=== PATIENT | female | born 1940 | race Caucasian/White ===

== ENCOUNTER → 2016-09-26 | Outpatient (CLI) | payer MEDICARE, OTHER ==
[2016-09-26 12:07] LABS: PROTHROMBIN TIME 27.9 SEC (11.4-15.4)
== END ==
LOC: OD 11:03
PROVIDERS: ATTEND Internal Medicine
DX: Z79.01 Long term (current) use of anticoagulants (principal)
CPT/HCPCS: 36415; 85610

== ENCOUNTER → 2016-11-17 | Outpatient (CLI) | payer MEDICARE, OTHER ==
[2016-11-17 18:47] LABS: PROTHROMBIN TIME 27.3 SEC (11.4-15.4)
== END ==
LOC: OD 17:14
PROVIDERS: ATTEND Internal Medicine
DX: Z79.01 Long term (current) use of anticoagulants (principal)
CPT/HCPCS: 36415; 85610

== ENCOUNTER → 2016-12-15 | Outpatient (CLI) | payer MEDICARE, OTHER ==
--- NOTE | 2016-12-15 15:21 | RADIOLOGY REPORT (SQ) ---
EXAM DESCRIPTION: CT HEAD WITHOUT COMPLETED DATE/TIME: 12/15/2016 2:56 pm REASON FOR STUDY: HEADACHE R51 HEADACHE COMPARISON: 01/18/2016, 02/29/2012 TECHNIQUE: Axial images acquired through the brain without intravenous contrast. Images reviewed wi th bone, brain and subdural windows. Images stored on PACS. All CT scanners at this facility use dose modulation, iterative reconstruction, and/or weight based d osing when appropriate to reduce radiation dose to as low as reasonably achievable (ALARA). [facility]: Dose Right [facility]: CareDose [facility]: Dose Right [facility]: Teradose 4D [facility]: [employer] RADIATION DOSE: 48.95 mGy. LIMITATIONS: None. FINDINGS: VENTRICLES: Normal size and contour. CEREBRUM: Spotty low attenuation in the bilateral frontal deep periventricular white matter and bilat eral basal ganglia likely chronic small vessel ischemic change. No CT evidence of acute large territory ischemic change, acute intracranial hemorrhage, mass effect, or midline shift. CEREBELLUM: No masses. No hemorrhage. No alteration of density. No evidence for acute infarction. EXTRAAXIAL SPACES: No fluid collections. No masses. ORBITS AND GLOBE: No intra- or extraconal masses. Normal contour of globe without masses. CALVARIUM: No fracture. PARANASAL SINUSES: No fluid or mucosal thickening. SOFT TISSUES: No mass or hematoma. OTHER: No other significant finding. IMPRESSION: No acute findings. 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 TECHNICAL DOCUMENTATION: JOB ID: [id number] Quality ID # [id number]: Final reports with documentation of one or more dose reduction techniques (e.g., Au tomated exposure control, adjustment of the mA and/or kV according to patient size, use of iterative reconstruction technique) 2010 [employer]- All Rights Reserved
== END ==
LOC: RAD 14:06
PROVIDERS: ATTEND Internal Medicine
DX: R51 Headache (principal)
CPT/HCPCS: 70450

== ENCOUNTER 2017-02-15 20:40 | Emergency (ER) | payer MEDICARE, OTHER ==
--- NOTE | 2017-02-15 22:43 | RADIOLOGY REPORT (SQ) ---
EXAM DESCRIPTION: CT HEAD WITHOUT COMPLETED DATE/TIME: 02/15/2017 10:32 pm REASON FOR STUDY: fall head injury COMPARISON: December 2015 TECHNIQUE: Axial images acquired through the brain without intravenous contrast. Images reviewed wi th bone, brain and subdural windows. Images stored on PACS. All CT scanners at this facility use dose modulation, iterative reconstruction, and/or weight based d osing when appropriate to reduce radiation dose to as low as reasonably achievable (ALARA). [facility]: Dose Right [facility]: CareDose [facility]: Dose Right [facility]: Teradose 4D [facility]: [employer] RADIATION DOSE: Up-to-date CT equipment and radiation dose reduction techniques were employed. CTDIv ol: 31.9 mGy. DLP: 510 mGy-cm. mGy. LIMITATIONS: None. FINDINGS: VENTRICLES: Normal size and contour. CEREBRUM: No masses. No hemorrhage. No midline shift. Normal ruano/white matter differentiation. N o evidence for acute infarction. CEREBELLUM: No masses. No hemorrhage. No alteration of density. No evidence for acute infarction. EXTRAAXIAL SPACES: No fluid collections. No masses. ORBITS AND GLOBE: No intra- or extraconal masses. Normal contour of globe without masses. CALVARIUM: No fracture. PARANASAL SINUSES: No fluid or mucosal thickening. SOFT TISSUES: No mass or hematoma. OTHER: No other significant finding. IMPRESSION: NORMAL BRAIN CT WITHOUT CONTRAST. TECHNICAL DOCUMENTATION: JOB ID: [id number] Quality ID # [id number]: Final reports with documentation of one or more dose reduction techniques (e.g., Au tomated exposure control, adjustment of the mA and/or kV according to patient size, use of iterative reconstruction technique) 2010 [employer]- All Rights Reserved
--- NOTE | 2017-02-15 22:54 | RADIOLOGY REPORT (SQ) ---
EXAM DESCRIPTION: CT FACIAL AREA WITHOUT COMPLETED DATE/TIME: 02/15/2017 10:32 pm REASON FOR STUDY: fall head injury COMPARISON: None. TECHNIQUE: Noncontrasted images through the facial bones and orbits windowed for bone and soft tissu e. Additional coronal and sagittal reconstructed images reviewed. All images stored on PACS. All CT scanners at this facility use dose modulation, iterative reconstruction, and/or weight based d osing when appropriate to reduce radiation dose to as low as reasonably achievable (ALARA). [facility]: Dose Right [facility]: CareDose [facility]: Dose Right [facility]: Teradose 4D [facility]: [employer] RADIATION DOSE: mGy. LIMITATIONS: None. FINDINGS: FACIAL BONES: No fracture or bone lesion. ORBITS: Intact. No fracture. Symmetric intact globes and retroorbital soft tissues. PARANASAL SINUSES: Clear. No significant mucosal thickening, mass or fluid. No nasal polyps. Maxill mala sinus outlets are patent. SOFT TISSUES: There is some minimal increased density in the subcutaneous fat in the right maxillary region presumably posttraumatic in nature. INFERIOR BRAIN: Limited view. No acute findings. OTHER: No other significant finding. IMPRESSION: No acute fracture dislocation. Paranasal sinuses are well-aerated without air-fluid lev els. Other findings as noted above TECHNICAL DOCUMENTATION: JOB ID: [id number] Quality ID # [id number]: Final reports with documentation of one or more dose reduction techniques (e.g., Au tomated exposure control, adjustment of the mA and/or kV according to patient size, use of iterative reconstruction technique) 2010 [employer]- All Rights Reserved
[2017-02-15 22:59] LABS: ABSOLUTE BASOPHILS # (AUTO) 0.1 10^3/uL (0.0-0.2); ABSOLUTE EOSINOPHILS # (AUTO) 0.1 10^3/uL (0.0-0.6); ABSOLUTE LYMPHOCYTES (AUTO) 1.1 10^3/uL (0.5-4.7); ABSOLUTE MONOCYTES (AUTO) 0.5 10^3/uL (0.1-1.4); ABSOLUTE NEUT (AUTO) 5.4 10^3/uL (1.7-8.2); EOSINOPHILS % (AUTO) 1.4 % (0-6); HEMATOCRIT 38.1 % (36.0-47.0); HEMOGLOBIN 12.8 g/dL (12.0-15.5); HGB HCT DIFFERENCE 0.3; MEAN CORPUSCULAR HEMOGLOBIN 31.7 pg (27.0-33.4); MEAN CORPUSCULAR HGB CONC 33.7 g/dL (32.0-36.0); MEAN CORPUSCULAR VOLUME 94 fl (80-97); MONOCYTES % (AUTO) 7.5 % (3-13); RED BLOOD COUNT 4.04 10^6/uL (3.72-5.28); RED CELL DISTRIBUTION WIDTH 13.7 % (11.5-14.0); SEGMENTED NEUTROPHILS % (AUTO) 75.1 % (42-78); WHITE BLOOD COUNT 7.2 10^3/uL (4.0-10.5)
--- NOTE | 2017-02-15 23:10 | ER Document Report ---
ED General - General Chief Complaint: Fall Injury Stated Complaint: FALL/HEAD INJURY Time Seen by Provider: 02/15/17 22:10 Mode of Arrival: Medic Information source: Patient, Parent Notes: 76-year-old female on Coumadin presents after mechanical fall striking her head and face. Patient notes laceration of the upper lip. Patient denies any neck pain back pain or any other injuries. TRAVEL OUTSIDE OF THE [place] IN LAST 30 DAYS: No - HPI Onset: Just prior to arrival Onset/Duration: Sudden Quality of pain: Achy Severity: Mild Pain Level: 1 Associated symptoms: Headache, Other Exacerbated by: Denies Relieved by: Denies Similar symptoms previously: Yes Recently seen / treated by doctor: Yes - Related Data Allergies/Adverse Reactions: acetaminophen [From Percocet] Allergy (Verified 02/15/17 21:05) ITCHING codeine [Codeine] Allergy (Verified 02/15/17 21:05) Nausea hydrocodone bitartrate [From Vicodin] Allergy (Verified 02/15/17 21:05) ITCHING levofloxacin [From Levaquin] Allergy (Verified 02/15/17 21:05) ITCHING oxycodone HCl [From Percocet] Allergy (Verified 02/15/17 21:05) ITCHING Sulfa (Sulfonamide Antibiotics) Allergy (Verified 02/15/17 21:05) ITCHING sulfabenzamide [Sulfabenzamide] Allergy (Verified 02/15/17 21:05) ITCHING Past Medical History - Social History Smoking Status: Never Smoker Cigarette use (# per day): No Chew tobacco use (# tins/day): No Smoking Education Provided: No Frequency of alcohol use: None Drug Abuse: None Family History: Reviewed & Not Pertinent - Past Medical History Cardiac Medical History: Reports: Hx DVT, Hx Hypercholesterolemia - borderline, Hx Hypertension - borderline, Hx Pulmonary Embolism Denies: Hx Heart Attack Pulmonary Medical History: Reports: Hx Pneumonia Denies: Hx Asthma Neurological Medical History: Denies: Hx Cerebrovascular Accident, Hx Seizures Renal/ Medical History: Denies: Hx Peritoneal Dialysis GI Medical History: Reports: Hx Gastroesophageal Reflux Disease, Hx Hiatal Hernia. Denies: Hx Hepatitis, Hx Ulcer Musculoskeltal Medical History: Reports Hx Arthritis Infectious Medical History: Denies: Hx Hepatitis Past Surgical History: Reports: Hx Hysterectomy, Hx Orthopedic Surgery - bilat rotator cuff, thumb joint removed, finger surgeries. Denies: Hx Mastectomy, Hx Open Heart Surgery, Hx Pacemaker - Immunizations Hx Diphtheria, Pertussis, Tetanus Vaccination: Yes Review of Systems - Review of Systems Notes: REVIEW OF SYSTEMS: CONSTITUTIONAL : Denies fever, chills, or sweats. Denies recent illness. EENT: Lip injury CARDIOVASCULAR: Denies chest pain. Denies palpitations or racing or irregular heart beat. Denies ankle edema. RESPIRATORY: Denies cough, cold, or chest congestion. Denies shortness of breath, difficulty breathing, or wheezing. GASTROINTESTINAL: Denies abdominal pain or distention. Denies nausea, vomiting , or diarrhea. Denies blood in vomitus, stools, or per rectum. Denies black, tarry stools. Denies constipation. GENITOURINARY: Denies difficulty urinating, painful urination, burning, frequency, blood in urine, or discharge. FEMALE GENITOURINARY: Denies vaginal bleeding, heavy or abnormal periods, irregular periods. Denies vaginal discharge or odor. MUSCULOSKELETAL: Denies back or neck pain or stiffness. Denies joint pain or swelling. SKIN: Denies rash, lesions or sores. HEMATOLOGIC : Denies easy bruising or bleeding. LYMPHATIC: Denies swollen, enlarged glands. NEUROLOGICAL: Admits to head injury PSYCHIATRIC: Denies anxiety or stress. Denies depression, suicidal ideation, or homicidal ideation. ALL OTHER SYSTEMS REVIEWED AND NEGATIVE. PHYSICAL EXAMINATION: GENERAL: Well-appearing, well-nourished and in no acute distress. HEAD: Atraumatic, normocephalic. EYES: Pupils equal round and reactive to light, extraocular movements intact, conjunctiva are normal. ENT: Nares patent, oropharynx clear without exudates. Moist mucous membranes. Laceration of the right upper lip with no involvement of the vermilion border measuring 2.2 cm NECK: Normal range of motion, supple without lymphadenopathy LUNGS: Breath sounds clear to auscultation bilaterally and equal. No wheezes rales or rhonchi. HEART: Regular rate and rhythm without murmurs ABDOMEN: Soft, nontender, nondistended abdomen. No guarding, no rebound. No masses appreciated. Female : deferred Musculoskeletal: Normal range of motion, no pitting or edema. No cyanosis. NEUROLOGICAL: Cranial nerves grossly intact. Normal speech, normal gait. Normal sensory, motor exams PSYCH: Normal mood, normal affect. SKIN: Warm, Dry, normal turgor, no rashes or lesions noted. Dictation was performed using [employer] voice recognition software Physical Exam - Vital signs Vitals: Temp Pulse Resp BP Pulse Ox 97.5 F 74 18 123/57 L 96 02/15/17 21:05 02/15/17 21:05 02/15/17 21:05 02/15/17 21:05 02/15/17 21:05 Course - Re-evaluation Re-evalutation: 02/16/17 00:48 Area was anesthetized and the repair was performed. CT head and face were negative. INR was 2.8 otherwise patient's alert oriented has no other complaints After performing a Medical Screening Examination, I estimate there is LOW risk for OPEN FRACTURE, COMPARTMENT SYNDROME, TENDON RUPTURE, ACUTE NEUROVASCULAR INJURY, or RETAINED FOREIGN BODY, thus I consider the discharge disposition reasonable. Also, there is no evidence or peritonitis, sepsis, or toxicity. I have reevaluated this patient multiple times and no significant life threatening changes are noted. The patient and I have discussed the diagnosis and risks, and we agree with discharging home with close follow-up with the understanding that symptoms and presentations can change. We also discussed returning to the Emergency Department immediately if new or worsening symptoms occur. We have discussed the symptoms which are most concerning (e.g., changing or worsening pain, fever, numbness, weakness, cool or painful digits) that necessitate immediate return. - Vital Signs Vital signs: Temp Pulse Resp BP Pulse Ox 97.5 F 67 17 134/56 H 98 02/15/17 21:05 02/15/17 22:49 02/16/17 00:02 02/16/17 00:02 02/16/17 00:02 - Laboratory Result Diagrams: 02/15/17 22:42 02/15/17 22:42 Laboratory results interpreted by me: 02/15/17 02/15/17 22:42 22:42 PT 31.0 H Chloride 108 H BUN 26 H Est GFR ( Amer) 59 L Est GFR (Non-Af Amer) 49 L Total Protein 6.2 L - Diagnostic Test Radiology reviewed: Image reviewed, Reports reviewed - No acute abnormality Procedures - Laceration/Wound Repair Right Mid- Face Time completed: 00:49 - Right upper lip Wound length (cm): 2.2 Wound's Depth, Shape: Superficial Laceration pre-procedure: Sterile PPE donned, Sterile drapes applied, Shur- Clens applied Anesthetic type: 1% Lidocaine Volume Anesthetic (mLs): 5 Wound explored: Clean, No foreign body removed Irrigated w/ Saline (mLs): 500 Wound Debrided: Minimal Wound Repaired With: Sutures Suture Size/Type: 6:0, Ethilon Number of Sutures: 4 Post-procedure wound care: Sterile dressing applied Post-procedure NV exam normal: Yes Complications: No Discharge - Discharge Clinical Impression: Upper lip laceration Fall Qualifiers: Encounter type: initial encounter Qualified Code(s): W19.XXXA - Unspecified fall, initial encounter Head injury Qualifiers: Encounter type: initial encounter Qualified Code(s): S09.90XA - Unspecified injury of head, initial encounter Condition: Stable Disposition: HOME, SELF-CARE Instructions: Laceration Care ([facility]) Additional Instructions: Follow-up in 5 days for removal of sutures or return immediately if there is any sign of infection or any other concerns
[2017-02-15 23:13] LABS: ALANINE AMINOTRANSFERASE 32 U/L (9-52); ALBUMIN 3.6 g/dL (3.5-5.0); ALKALINE PHOSPHATASE 111 U/L (38-126); ANION GAP 12 (5-19); ASPARTATE AMINO TRANSFERASE 21 U/L (14-36); BILIRUBIN,DIRECT 0.3 mg/dL (0.0-0.4); BILIRUBIN,TOTAL 0.5 mg/dL (0.2-1.3); BLOOD UREA NITROGEN 26 mg/dL (7-20); CALCIUM 8.7 mg/dL (8.4-10.2); CARBON DIOXIDE 23 mmol/L (22-30); CHLORIDE 108 mmol/L (98-107); CREATININE RESULT 1.08 mg/dL (0.52-1.25); GLUCOSE 101 mg/dL (75-110); POTASSIUM 3.9 mmol/L (3.6-5.0); SODIUM 142.7 mmol/L (137-145); TOTAL PROTEIN 6.2 g/dL (6.3-8.2)
[2017-02-15] MEDS ORDERED: LIDOCAINE 1% INJ-PF (10 MG/ML) 30 ML SDV INJ ONE (23:52)
[2017-02-16 00:58] VITALS: BP 125/75
== END 2017-02-16 01:10 | disposition home or self-care (01) ==
LOC: ER 20:40
PROC: 0CQ0XZZ Repair Upper Lip, External Approach (ICD-10-PCS; principal; 2017-02-15)
DX: S01.511A Laceration without foreign body of lip, initial encounter (principal); W19.XXXA Unspecified fall, initial encounter; Y93.89 Activity, other specified; R51 Headache; Z88.5 Allergy status to narcotic agent; Z88.1 Allergy status to other antibiotic agents; Z88.2 Allergy status to sulfonamides
CPT/HCPCS: 36415; 70450; 70486; 80053; 85025; 85610; 99284

== ENCOUNTER → 2017-03-28 | Outpatient (CLI) | payer MEDICARE, OTHER ==
[2017-03-28 11:27] LABS: PROTHROMBIN TIME 32.2 SEC (11.4-15.4)
== END ==
LOC: OD 10:45
PROVIDERS: ATTEND Internal Medicine
DX: Z79.01 Long term (current) use of anticoagulants (principal)
CPT/HCPCS: 36415; 85610

== ENCOUNTER 2017-04-02 11:53 | Emergency (ER) | payer MEDICARE, OTHER ==
--- NOTE | 2017-04-02 12:33 | ER Document Report ---
ED Medical Screen (RME) - General Chief Complaint: Leg Pain Stated Complaint: BODY PAIN Time Seen by Provider: 04/02/17 12:28 Notes: This 76-year-old female patient who is on Coumadin reports bumping her right jacques area on 03/28/2017. She developed a blood blister in the area. Since then she has continued to walk on the leg despite the discomfort. She has since developed pain in the knee, pain and swelling and redness in the anterior leg, and pain and swelling in the proximal dorsal foot. I have greeted and performed a rapid initial assessment of this patient. A comprehensive ED assessment and evaluation of the patient, analysis of test results and completion of the medical decision making process will be conducted by additional ED providers. TRAVEL OUTSIDE OF THE [place] IN LAST 30 DAYS: No - Related Data Allergies/Adverse Reactions: acetaminophen [From Percocet] Allergy (Verified 04/02/17 12:02) ITCHING codeine [Codeine] Allergy (Verified 04/02/17 12:02) Nausea hydrocodone bitartrate [From Vicodin] Allergy (Verified 04/02/17 12:02) ITCHING levofloxacin [From Levaquin] Allergy (Verified 04/02/17 12:02) ITCHING oxycodone HCl [From Percocet] Allergy (Verified 04/02/17 12:02) ITCHING Sulfa (Sulfonamide Antibiotics) Allergy (Verified 04/02/17 12:02) ITCHING sulfabenzamide [Sulfabenzamide] Allergy (Verified 04/02/17 12:02) ITCHING Past Medical History - Social History Chew tobacco use (# tins/day): No Frequency of alcohol use: None Drug Abuse: None - Past Medical History Cardiac Medical History: Reports: Hx DVT, Hx Hypercholesterolemia - borderline, Hx Hypertension - borderline, Hx Pulmonary Embolism Denies: Hx Heart Attack Pulmonary Medical History: Reports: Hx Pneumonia Denies: Hx Asthma Neurological Medical History: Denies: Hx Cerebrovascular Accident, Hx Seizures Renal/ Medical History: Denies: Hx Peritoneal Dialysis GI Medical History: Reports: Hx Gastroesophageal Reflux Disease, Hx Hiatal Hernia. Denies: Hx Hepatitis, Hx Ulcer Musculoskeltal Medical History: Reports Hx Arthritis Infectious Medical History: Denies: Hx Hepatitis Past Surgical History: Reports: Hx Hysterectomy, Hx Orthopedic Surgery - bilat rotator cuff, thumb joint removed, finger surgeries. Denies: Hx Mastectomy, Hx Open Heart Surgery, Hx Pacemaker - Immunizations Hx Diphtheria, Pertussis, Tetanus Vaccination: Yes Physical Exam - Vital signs Vitals: Temp Pulse Resp BP Pulse Ox 98.5 F 78 20 186/91 H 95 04/02/17 12:02 04/02/17 12:02 04/02/17 12:02 04/02/17 12:02 04/02/17 12:02 Course - Vital Signs Vital signs: Temp Pulse Resp BP Pulse Ox 98.5 F 78 20 186/91 H 95 04/02/17 12:02 04/02/17 12:02 04/02/17 12:02 04/02/17 12:02 04/02/17 12:02
[2017-04-02] MEDS ORDERED: HYDROCODONE/ACETAMINOPHEN 5-325 MG TABLET PO ONE (13:42)
--- NOTE | 2017-04-02 13:42 | ER Document Report ---
ED Extremity Problem, Lower - General Chief Complaint: Leg Pain Stated Complaint: BODY PAIN Time Seen by Provider: 04/02/17 12:28 Mode of Arrival: Ambulatory Information source: Patient TRAVEL OUTSIDE OF THE [place] IN LAST 30 DAYS: No - HPI Patient complains to provider of: Injury, Pain, Swelling Location: Leg Occurred: Yesterday Where: Home Onset/Duration: Gradual Quality of pain: Achy Severity: Moderate Pain Level: 3 Context: Direct blow Recent injury: Yes Associated symptoms: denies: Chest pain, Short of breath Exacerbated by: Movement Relieved by: Nothing Notes: Patient is a 76-year-old female presenting to the emergency room today complaining of swelling with redness and pain to her right anterior lower leg that she first noted yesterday, she does report a minor injury having bumped it on a piece of furniture on Monday of last week, which created a small 2 cm blood-filled blister anteriorly, patient has a history of bilateral DVTs and PEs , is currently on Coumadin 4 mg daily, she denies any fevers, no chest pain or shortness of breath today - Related Data Allergies/Adverse Reactions: acetaminophen [From Percocet] Allergy (Verified 04/02/17 12:02) ITCHING codeine [Codeine] Allergy (Verified 04/02/17 12:02) Nausea hydrocodone bitartrate [From Vicodin] Allergy (Verified 04/02/17 12:02) ITCHING levofloxacin [From Levaquin] Allergy (Verified 04/02/17 12:02) ITCHING oxycodone HCl [From Percocet] Allergy (Verified 04/02/17 12:02) ITCHING Sulfa (Sulfonamide Antibiotics) Allergy (Verified 04/02/17 12:02) ITCHING sulfabenzamide [Sulfabenzamide] Allergy (Verified 04/02/17 12:02) ITCHING Past Medical History - General Information source: Patient, Relative - Social History Smoking Status: Former Smoker Chew tobacco use (# tins/day): No Frequency of alcohol use: None Drug Abuse: None Family History: Reviewed & Not Pertinent - Past Medical History Cardiac Medical History: Reports: Hx DVT, Hx Hypercholesterolemia - borderline, Hx Hypertension - borderline, Hx Pulmonary Embolism Denies: Hx Heart Attack Pulmonary Medical History: Reports: Hx Pneumonia Denies: Hx Asthma Neurological Medical History: Denies: Hx Cerebrovascular Accident, Hx Seizures Renal/ Medical History: Denies: Hx Peritoneal Dialysis GI Medical History: Reports: Hx Gastroesophageal Reflux Disease, Hx Hiatal Hernia. Denies: Hx Hepatitis, Hx Ulcer Musculoskeltal Medical History: Reports Hx Arthritis Infectious Medical History: Denies: Hx Hepatitis Past Surgical History: Reports: Hx Hysterectomy, Hx Orthopedic Surgery - bilat rotator cuff, thumb joint removed, finger surgeries. Denies: Hx Mastectomy, Hx Open Heart Surgery, Hx Pacemaker - Immunizations Hx Diphtheria, Pertussis, Tetanus Vaccination: Yes Review of Systems - Review of Systems Constitutional: No symptoms reported EENT: No symptoms reported Cardiovascular: No symptoms reported Respiratory: No symptoms reported Gastrointestinal: No symptoms reported Genitourinary: No symptoms reported Female Genitourinary: No symptoms reported Musculoskeletal: See HPI Skin: See HPI Hematologic/Lymphatic: No symptoms reported Neurological/Psychological: No symptoms reported -: Yes All other systems reviewed and negative Physical Exam - Vital signs Vitals: Temp Pulse Resp BP Pulse Ox 98.5 F 78 20 186/91 H 95 04/02/17 12:02 04/02/17 12:02 04/02/17 12:02 04/02/17 12:02 04/02/17 12:02 Interpretation: Hypertensive - General General appearance: Appears well, Alert - HEENT Head: Normocephalic, Atraumatic Eyes: Normal Pupils: PERRL - Respiratory Respiratory status: No respiratory distress - Cardiovascular Rhythm: Regular - Abdominal Inspection: Normal - Back Back: Normal - Extremities General upper extremity: Normal inspection, Nontender, Normal color, Normal ROM , Normal temperature General lower extremity: Normal ROM. No: Carina's sign Notes: On the anterior portion of the right lower leg is a 2 cm blood-filled blister, surrounding that is a small patch of erythema with slight increased warmth and tenderness, distal sensation and motor is intact with 2+ DP pulses - Neurological Neuro grossly intact: Yes Cognition: Normal Orientation: AAOx4 Salty Coma Scale Eye Opening: Spontaneous Salty Coma Scale Verbal: Oriented Salty Coma Scale Motor: Obeys Commands [place] Coma Scale Total: 15 Speech: Normal Motor strength normal: LUE, RUE, LLE, RLE Sensory: Normal - Psychological Associated symptoms: Normal affect, Normal mood - Skin Skin Temperature: Warm Skin Moisture: Dry Skin Color: Normal Course - Re-evaluation Re-evalutation: 04/02/17 17:47 Lab and imaging findings were discussed with patient and family members at bedside which are unremarkable, no DVT noted, patient's INR is slightly supratherapeutic at 3.07, symptoms are consistent with likely early cellulitis, she was started on antibiotics for this and advised to follow-up with her primary care provider or return if symptoms worsen, patient acknowledges understanding and agreement with this plan - Vital Signs Vital signs: Temp Pulse Resp BP Pulse Ox 98.2 F 69 16 132/56 H 92 04/02/17 16:52 04/02/17 16:52 04/02/17 16:52 04/02/17 16:52 04/02/17 16:52 - Laboratory Result Diagrams: 04/02/17 14:45 04/02/17 14:45 Laboratory results interpreted by me: 04/02/17 04/02/17 14:45 14:45 PT 33.2 H Chloride 108 H BUN 21 H - Diagnostic Test Radiology reviewed: Image reviewed, Reports reviewed Discharge - Discharge Clinical Impression: Cellulitis of right lower extremity Condition: Stable Disposition: HOME, SELF-CARE Instructions: Cellulitis ([facility]) Additional Instructions: Follow up with your primary care provider in one to 2 days. Return to the emergency room immediately if symptoms worsen or any additional concerns. Prescriptions: Clindamycin HCl [Cleocin 150 mg Capsule] 450 mg PO Q6 10 Days capsule Hydrocodone/Acetaminophen [Hydrocodon-Acetaminophen 5-325] 1 each PO Q6 #10 tablet Referrals: BROCK WILL MD [Primary Care Provider] - Follow up as needed
[2017-04-02 15:11] LABS: ABSOLUTE EOSINOPHILS # (AUTO) 0.2 10^3/uL (0.0-0.6); ABSOLUTE LYMPHOCYTES (AUTO) 1.5 10^3/uL (0.5-4.7); ABSOLUTE MONOCYTES (AUTO) 0.3 10^3/uL (0.1-1.4); ABSOLUTE NEUT (AUTO) 3.7 10^3/uL (1.7-8.2); BASOPHILS % (AUTO) 0.5 % (0-2); EOSINOPHILS % (AUTO) 2.7 % (0-6); HEMATOCRIT 40.3 % (36.0-47.0); HEMOGLOBIN 13.5 g/dL (12.0-15.5); HGB HCT DIFFERENCE 0.2; LYMPHOCYTES % (AUTO) 26.5 % (13-45); MEAN CORPUSCULAR HEMOGLOBIN 31.3 pg (27.0-33.4); MEAN CORPUSCULAR HGB CONC 33.5 g/dL (32.0-36.0); MEAN CORPUSCULAR VOLUME 93 fl (80-97); MONOCYTES % (AUTO) 5.8 % (3-13); RED BLOOD COUNT 4.32 10^6/uL (3.72-5.28); RED CELL DISTRIBUTION WIDTH 13.7 % (11.5-14.0); SEGMENTED NEUTROPHILS % (AUTO) 64.5 % (42-78); WHITE BLOOD COUNT 5.7 10^3/uL (4.0-10.5)
[2017-04-02 15:19] LABS: PROTHROMBIN TIME 33.2 SEC (11.4-15.4)
[2017-04-02 15:28] LABS: ALANINE AMINOTRANSFERASE 28 U/L (9-52); ALBUMIN 4.1 g/dL (3.5-5.0); ALKALINE PHOSPHATASE 112 U/L (38-126); ANION GAP 6 (5-19); ASPARTATE AMINO TRANSFERASE 21 U/L (14-36); BILIRUBIN,DIRECT 0.3 mg/dL (0.0-0.4); BILIRUBIN,TOTAL 0.6 mg/dL (0.2-1.3); BLOOD UREA NITROGEN 21 mg/dL (7-20); CALCIUM 9.5 mg/dL (8.4-10.2); CARBON DIOXIDE 28 mmol/L (22-30); CHLORIDE 108 mmol/L (98-107); CREATININE RESULT 0.91 mg/dL (0.52-1.25); GLUCOSE 92 mg/dL (75-110); POTASSIUM 4.2 mmol/L (3.6-5.0); SODIUM 142.2 mmol/L (137-145); TOTAL PROTEIN 6.6 g/dL (6.3-8.2)
--- NOTE | 2017-04-02 16:57 | RADIOLOGY REPORT (SQ) ---
EXAM DESCRIPTION: VENOUS UNILATERAL LOWER COMPLETED DATE/TIME: 04/02/2017 4:45 pm REASON FOR STUDY: rle pain COMPARISON: None. TECHNIQUE: Dynamic and static ruano scale and color images acquired of the right leg venous system. S elected spectral images acquired with additional compression and augmentation maneuvers. The contrala teral common femoral vein and saphenofemoral junction were also imaged. Images stored on PACS. LIMITATIONS: None. FINDINGS: COMMON FEMORAL: Normal phasicity, compression and augmentation. No visualized echogenic ma terial on ruano scale. No defects on color images. FEMORAL: Normal compression and augmentation. No visualized echogenic material on ruano scale. No defe cts on color images. POPLITEAL: Normal compression, augmentation. No visualized echogenic material on ruano scale. No defec ts on color images. CALF VESSELS: Normal compression, augmentation. No visualized echogenic material on ruano scale. No de fects on color images. GSV and SSV: Normal compression, augmentation. No visualized echogenic material on ruano scale. No def ects on color images. ANY DEEP VENOUS INSUFFICIENCY: Not evaluated. ANY EVIDENCE OF POPLITEAL CYST: No. OTHER: No other significant finding. CONTRALATERAL COMMON FEMORAL VEIN AND SAPHENOFEMORAL JUNCTION: Normal phasicity, compression and augmentation. No visualized echogenic material on ruano scale. No de fects on color images. IMPRESSION: NO DVT in the right leg. TECHNICAL DOCUMENTATION: JOB ID: [id number] [employer]- All Rights Reserved
[2017-04-02 17:00] VITALS: BP 132/56
== END 2017-04-02 17:00 | disposition home or self-care (01) ==
LOC: ER 11:53
DX: L03.115 Cellulitis of right lower limb (principal); E78.00 Pure hypercholesterolemia, unspecified; I10 Essential (primary) hypertension; K21.9 Gastro-esophageal reflux disease without esophagitis; Z88.6 Allergy status to analgesic agent; Z88.2 Allergy status to sulfonamides; Z86.718 Personal history of other venous thrombosis and embolism; Z86.711 Personal history of pulmonary embolism; Z90.710 Acquired absence of both cervix and uterus
CPT/HCPCS: 99284; 36415; 87040; 85025; 85610; 80053; 93971; A9270

== ENCOUNTER → 2017-04-27 | Outpatient (CLI) | payer MEDICARE, OTHER ==
[2017-04-27 11:43] LABS: ABSOLUTE EOSINOPHILS # (AUTO) 0.2 10^3/uL (0.0-0.6); ABSOLUTE LYMPHOCYTES (AUTO) 1.1 10^3/uL (0.5-4.7); ABSOLUTE MONOCYTES (AUTO) 0.3 10^3/uL (0.1-1.4); ABSOLUTE NEUT (AUTO) 3.5 10^3/uL (1.7-8.2); BASOPHILS % (AUTO) 0.5 % (0-2); EOSINOPHILS % (AUTO) 3.6 % (0-6); HEMATOCRIT 37.8 % (36.0-47.0); HEMOGLOBIN 13.1 g/dL (12.0-15.5); HGB HCT DIFFERENCE 1.5; LYMPHOCYTES % (AUTO) 21.8 % (13-45); MEAN CORPUSCULAR HEMOGLOBIN 31.7 pg (27.0-33.4); MEAN CORPUSCULAR HGB CONC 34.5 g/dL (32.0-36.0); MEAN CORPUSCULAR VOLUME 92 fl (80-97); MONOCYTES % (AUTO) 6.4 % (3-13); RED BLOOD COUNT 4.12 10^6/uL (3.72-5.28); RED CELL DISTRIBUTION WIDTH 13.2 % (11.5-14.0); SEGMENTED NEUTROPHILS % (AUTO) 67.7 % (42-78); WHITE BLOOD COUNT 5.2 10^3/uL (4.0-10.5)
[2017-04-27 11:50] LABS: PROTHROMBIN TIME 28.6 SEC (11.4-15.4)
[2017-04-27 12:09] LABS: ALANINE AMINOTRANSFERASE 26 U/L (9-52); ALBUMIN 4.1 g/dL (3.5-5.0); ALKALINE PHOSPHATASE 123 U/L (38-126); ANION GAP 10 (5-19); ASPARTATE AMINO TRANSFERASE 19 U/L (14-36); BILIRUBIN,DIRECT 0.4 mg/dL (0.0-0.4); BILIRUBIN,TOTAL 0.7 mg/dL (0.2-1.3); BLOOD UREA NITROGEN 23 mg/dL (7-20); CALCIUM 9.3 mg/dL (8.4-10.2); CARBON DIOXIDE 27 mmol/L (22-30); CHLORIDE 105 mmol/L (98-107); CHOLESTEROL 145.44 mg/dL (0-200); CREATININE RESULT 0.96 mg/dL (0.52-1.25); Direct HDL 70 mg/dL (>40); GLUCOSE 91 mg/dL (75-110); POTASSIUM 4.3 mmol/L (3.6-5.0); TOTAL PROTEIN 6.5 g/dL (6.3-8.2); TRIGLYCERIDES 86 mg/dL (<150)
[2017-04-27 12:19] LABS: DIRECT LDL 57 mg/dL (<100)
== END ==
LOC: OD 10:29
PROVIDERS: ATTEND Internal Medicine
DX: I10 Essential (primary) hypertension (principal); Z79.01 Long term (current) use of anticoagulants; R53.83 Other fatigue; E78.5 Hyperlipidemia, unspecified; J44.9 Chronic obstructive pulmonary disease, unspecified; I73.9 Peripheral vascular disease, unspecified; M51.36 Other intervertebral disc degeneration, lumbar region
CPT/HCPCS: 36415; 80053; 80061; 84443; 85025; 85610

== ENCOUNTER → 2017-06-05 | Outpatient (CLI) | payer MEDICARE, OTHER ==
[2017-06-05 10:44] LABS: PROTHROMBIN TIME 34.9 SEC (11.4-15.4)
== END ==
LOC: OD 09:47
PROVIDERS: ATTEND Internal Medicine
DX: Z51.81 Encounter for therapeutic drug level monitoring (principal); Z79.01 Long term (current) use of anticoagulants
CPT/HCPCS: 36415; 85610

== ENCOUNTER → 2017-07-14 | Outpatient (CLI) | payer MEDICARE, OTHER ==
[2017-07-14 10:50] LABS: INTERNATIONAL RATION (INR) 2.72; PROTHROMBIN TIME 30.2 SEC (11.4-15.4)
== END ==
LOC: OD 09:53
PROVIDERS: ATTEND Internal Medicine
DX: I74.9 Embolism and thrombosis of unspecified artery (principal); I82.409 Acute embolism and thrombosis of unspecified deep veins of unspecified lower extremity; Z79.01 Long term (current) use of anticoagulants
CPT/HCPCS: 36415; 85610

== ENCOUNTER → 2017-08-14 | Outpatient (CLI) | payer MEDICARE, OTHER ==
[2017-08-14 15:09] LABS: INTERNATIONAL RATION (INR) 2.61; PROTHROMBIN TIME 29.2 SEC (11.4-15.4)
== END ==
LOC: OD 14:30
PROVIDERS: ATTEND Internal Medicine
DX: Z51.81 Encounter for therapeutic drug level monitoring (principal); Z79.01 Long term (current) use of anticoagulants
CPT/HCPCS: 36415; 85610

== ENCOUNTER → 2017-10-13 | Outpatient (CLI) | payer MEDICARE, OTHER ==
--- NOTE | 2017-10-13 10:25 | WOMENS IMAGING REPORT ---
EXAM DESCRIPTION: BONE DENSITY HIP/SPINE COMPLETED DATE/TIME: 10/13/2017 8:35 am REASON FOR STUDY: OSTEOPOROSIS M81.0 AGE-RELATED OSTEOPOROSIS W/O CURRENT PATHOLOGICAL FRAC COMPARISON: 01/03/2011, 04/03/2006, 03/25/2004 TECHNIQUE: Dual-Energy X-ray Absorptiometry (DEXA) of the AP Hip, and Forearm. LIMITATIONS: None. FINDINGS: HIP: The bone mineral density (BMD) measured in the left hip correlates with a T-score of -0.7 in the femo ral neck, which is normal as defined by the World Health Organization. FOREARM: The bone mineral density (BMD) measured in the left forearm correlates with a T-score of 0.2 which is normal as defined by the World Health Organization. IMPRESSION: 1.HIP: NORMAL 2. FOREARM: NORMAL COMMENT: The World Health Organization defines low BMD as follows: T-score: Normal: Greater than -1.0 Osteopenia: Between -1.0 and -2.5 Osteoporosis: Less than -2.5 without fractures Established osteoporosis: Less than -2.5 with fractures In general, you may wish to consider: Diagnosis Treatment Follow-up DEXA Normal BMD Prevention 2-3 years Osteopenia Prevention/Therapy 1-2 years Osteoporosis Therapy Yearly TECHNICAL DOCUMENTATION: JOB ID: [id number] [employer]- All Rights Reserved Reading location - IP/workstation name: [email or web address]
== END ==
LOC: WI 08:05
PROVIDERS: ATTEND Internal Medicine
DX: M81.0 Age-related osteoporosis without current pathological fracture (principal)
CPT/HCPCS: 77080

== ENCOUNTER → 2017-10-16 | Outpatient (CLI) | payer OTHER ==
[2017-10-16 17:58] LABS: APPEARANCE,URINE SLIGHTLY-CLOUDY; BILIRUBIN,URINE NEGATIVE (NEGATIVE); COLOR,URINE YELLOW; GLUCOSE, URINE NEGATIVE (NEGATIVE); KETONES,URINE NEGATIVE (NEGATIVE); LEUKOCYTE ESTERASE,URINE TRACE (NEGATIVE); NITRITE,URINE POSITIVE (NEGATIVE); PROTEIN,URINE NEGATIVE (NEGATIVE); URINE SPECIFIC GRAVITY 1.019; UROBILINOGEN,URINE NEGATIVE mg/dL (<2.0)
[2017-10-16 18:57] LABS: INTERNATIONAL RATION (INR) 1.83; PROTHROMBIN TIME 22.2 SEC (11.4-15.4)
== END ==
LOC: OD 15:43
PROVIDERS: ATTEND Internal Medicine
DX: N39.0 Urinary tract infection, site not specified (principal); Z51.81 Encounter for therapeutic drug level monitoring; Z79.01 Long term (current) use of anticoagulants
CPT/HCPCS: 36415; 81001; 85610; 87086; 87088; 87186

== ENCOUNTER → 2017-11-22 | Outpatient (CLI) | payer MEDICARE, OTHER ==
[2017-11-22 17:29] LABS: ABSOLUTE EOSINOPHILS # (AUTO) 0.2 10^3/uL (0.0-0.6); ABSOLUTE LYMPHOCYTES (AUTO) 1.3 10^3/uL (0.5-4.7); ABSOLUTE MONOCYTES (AUTO) 0.3 10^3/uL (0.1-1.4); ABSOLUTE NEUT (AUTO) 4.6 10^3/uL (1.7-8.2); BASOPHILS % (AUTO) 0.6 % (0-2); EOSINOPHILS % (AUTO) 2.4 % (0-6); HEMATOCRIT 36.4 % (36.0-47.0); HEMOGLOBIN 12.2 g/dL (12.0-15.5); MEAN CORPUSCULAR HEMOGLOBIN 30.1 pg (27.0-33.4); MEAN CORPUSCULAR HGB CONC 33.5 g/dL (32.0-36.0); MEAN CORPUSCULAR VOLUME 90 fl (80-97); MONOCYTES % (AUTO) 5.3 % (3-13); PLATELET COUNT 262 10^3/uL (150-450); RED BLOOD COUNT 4.06 10^6/uL (3.72-5.28); RED CELL DISTRIBUTION WIDTH 13.9 % (11.5-14.0); SEGMENTED NEUTROPHILS % (AUTO) 71.7 % (42-78); TOTAL CELLS COUNTED % (AUTO) 100 %; WHITE BLOOD COUNT 6.4 10^3/uL (4.0-10.5)
[2017-11-22 17:36] LABS: INTERNATIONAL RATION (INR) 2.66; PROTHROMBIN TIME 29.6 SEC (11.4-15.4)
== END ==
LOC: OD 16:04
PROVIDERS: ATTEND Internal Medicine
DX: I10 Essential (primary) hypertension (principal); R60.9 Edema, unspecified; R53.83 Other fatigue; Z79.01 Long term (current) use of anticoagulants
CPT/HCPCS: 36415; 85025; 85610

== ENCOUNTER → 2018-01-20 | Outpatient (CLI) | payer MEDICARE, OTHER ==
[2018-01-20 11:41] LABS: ABSOLUTE EOSINOPHILS # (AUTO) 0.2 10^3/uL (0.0-0.6); ABSOLUTE LYMPHOCYTES (AUTO) 1.1 10^3/uL (0.5-4.7); ABSOLUTE MONOCYTES (AUTO) 0.3 10^3/uL (0.1-1.4); ABSOLUTE NEUT (AUTO) 2.6 10^3/uL (1.7-8.2); BASOPHILS % (AUTO) 0.9 % (0-2); EOSINOPHILS % (AUTO) 3.6 % (0-6); HEMATOCRIT 39.5 % (36.0-47.0); HEMOGLOBIN 13.3 g/dL (12.0-15.5); LYMPHOCYTES % (AUTO) 26.1 % (13-45); MEAN CORPUSCULAR HEMOGLOBIN 30.1 pg (27.0-33.4); MEAN CORPUSCULAR HGB CONC 33.7 g/dL (32.0-36.0); MEAN CORPUSCULAR VOLUME 89 fl (80-97); MONOCYTES % (AUTO) 7.9 % (3-13); PLATELET COUNT 271 10^3/uL (150-450); RED BLOOD COUNT 4.42 10^6/uL (3.72-5.28); RED CELL DISTRIBUTION WIDTH 14.1 % (11.5-14.0); SEGMENTED NEUTROPHILS % (AUTO) 61.5 % (42-78); TOTAL CELLS COUNTED % (AUTO) 100 %; WHITE BLOOD COUNT 4.3 10^3/uL (4.0-10.5)
[2018-01-20 12:01] LABS: ALANINE AMINOTRANSFERASE 33 U/L (9-52); ALBUMIN 3.8 g/dL (3.5-5.0); ALKALINE PHOSPHATASE 96 U/L (38-126); ANION GAP 12 (5-19); ASPARTATE AMINO TRANSFERASE 27 U/L (14-36); BILIRUBIN,DIRECT 0.4 mg/dL (0.0-0.4); BILIRUBIN,TOTAL 0.6 mg/dL (0.2-1.3); BLOOD UREA NITROGEN 19 mg/dL (7-20); CALCIUM 9.2 mg/dL (8.4-10.2); CARBON DIOXIDE 30 mmol/L (22-30); CHLORIDE 104 mmol/L (98-107); GLUCOSE 108 mg/dL (75-110); POTASSIUM 4.8 mmol/L (3.6-5.0); SODIUM 145.6 mmol/L (137-145); TOTAL PROTEIN 6.4 g/dL (6.3-8.2)
== END ==
LOC: OD 11:10
PROVIDERS: ATTEND Internal Medicine
DX: K57.92 Diverticulitis of intestine, part unspecified, without perforation or abscess without bleeding (principal); R10.9 Unspecified abdominal pain
CPT/HCPCS: 36415; 80053; 85025

== ENCOUNTER → 2018-01-22 | Outpatient (CLI) | payer MEDICARE, OTHER ==
--- NOTE | 2018-01-22 10:39 | RADIOLOGY REPORT (SQ) ---
EXAM DESCRIPTION: CT ABD/PELVIS WITH IV ORAL COMPLETED DATE/TIME: 01/22/2018 9:49 am REASON FOR STUDY: DIVERTICULITIS (K57.92) K57.92 DVTRCLI OF INTEST, PART UNSP, W/O PERF OR ABSCESS W/O COMPARISON: Hepatobiliary scan 10/07/2011, abdominal ultrasound 09/16/2011 TECHNIQUE: CT scan of the abdomen and pelvis performed using helical scanning technique with dynamic intravenous contrast injection. Patient drank oral contrast. Images reviewed with lung, soft tissue, and bone windows. Reconstructed coronal and sagittal MPR images reviewed. Delayed images for evaluation of the urinary system also ac quired. All images stored on PACS. All CT scanners at this facility use dose modulation, iterative reconstruction, and/or weight based d osing when appropriate to reduce radiation dose to as low as reasonably achievable (ALARA). [facility]: Dose Right [facility]: CareDose [facility]: Dose Right [facility]: Teradose 4D [facility]: [employer] CONTRAST TYPE AND DOSE: contrast/concentration: Isovue 370.00 mg/ml; Total Contrast Delivered: 92.0 ml; Total Saline Delivered: 70.0 ml RENAL FUNCTION: Creatinine 1.1 RADIATION DOSE: CT Rad equipment meets quality standard of care and radiation dose reduction techniq ues were employed. CTDIvol: 10.2 - 11.4 mGy. DLP: 1130 mGy-cm.. LIMITATIONS: None. FINDINGS: LOWER CHEST: No significant findings. No nodules or infiltrates. LIVER: Normal size. No masses. No dilated ducts. SPLEEN: Normal size. No focal lesions. PANCREAS: No masses. No significant calcifications. No adjacent inflammation or peripancreatic fluid collections. Pancreatic duct not dilated. GALLBLADDER: No identified stones by CT criteria. No inflammatory changes to suggest cholecystitis. ADRENAL GLANDS: No significant masses or asymmetry. RIGHT KIDNEY AND URETER: No solid masses. No significant calcifications. No hydronephrosis or hyd roureter. Right extrarenal pelvis, an anatomic variant. LEFT KIDNEY AND URETER: No solid masses. No significant calcifications. No hydronephrosis or hydr oureter. AORTA AND VESSELS: No aneurysm. No dissection. Renal arteries, SMA, celiac without stenosis. RETROPERITONEUM: No retroperitoneal adenopathy, hemorrhage or masses. BOWEL AND PERITONEAL CAVITY: Patient drank oral contrast. No free intraperitoneal air or fluid. No CT signs of bowel obstruction, diverticulitis, or appendicitis. There are few distal sigmoid colon d iverticuli which are noninflamed. APPENDIX: Normal. PELVIS: No mass. No free fluid. Normal bladder. Post hysterectomy ABDOMINAL WALL: No masses. No hernias. BONES: Lower lumbar fusion with hardware. OTHER: No other significant finding. IMPRESSION: No CT evidence of diverticulitis or colitis. No free intraperitoneal air or fluid. TECHNICAL DOCUMENTATION: JOB ID: [id number] Quality ID # [id number]: Final reports with documentation of one or more dose reduction techniques (e.g., Au tomated exposure control, adjustment of the mA and/or kV according to patient size, use of iterative reconstruction technique) 2010 [employer]- All Rights Reserved Reading location - IP/workstation name: [email or web address]
== END ==
LOC: RAD 09:15
PROVIDERS: ATTEND Internal Medicine
DX: K57.92 Diverticulitis of intestine, part unspecified, without perforation or abscess without bleeding (principal)
CPT/HCPCS: 74177

== ENCOUNTER → 2018-05-31 | Outpatient (CLI) | payer MEDICARE, OTHER ==
[2018-05-31 11:17] LABS: CHOLESTEROL 147.71 mg/dL (0-200); TRIGLYCERIDES 94 mg/dL (<150)
[2018-05-31 11:28] LABS: DIRECT LDL 73 mg/dL (<100)
== END ==
LOC: OD 10:13
PROVIDERS: ATTEND Internal Medicine
DX: E78.5 Hyperlipidemia, unspecified (principal)
CPT/HCPCS: 36415; 80061

== ENCOUNTER 2018-06-25 17:52 | Emergency (ER) | payer MEDICARE, OTHER ==
[2018-06-25] MEDS ORDERED: ASPIRIN 81 MG TABLET, CHEWABLE PO ONE (22:20)
--- NOTE | 2018-06-25 22:47 | ER Document Report ---
ED Cardiac - General Chief Complaint: Back Pain Stated Complaint: SHORTNESS OF BREATH Time Seen by Provider: 06/25/18 22:20 Mode of Arrival: Stretcher Information source: Patient, Relative Notes: Patient is an 78-year-old female with history of hypertension, atrial fibrillation, and pulmonary embolism currently taking Eliquis who presents with left-sided shoulder pain radiating to the back inferior to the scapula. Patient reports symptoms started immediately, is a sharp and stabbing sensation , associated with increased shortness of breath secondary to pain. She reports baseline swelling in the lower extremities, no obvious chest pain or dyspnea on exertion, no new medications, no new injuries. Patient denies having similar symptoms in the past. Patient does report having an EGD approximately 3 days ago, procedure went well according to the patient, however she did experience abdominal pain 2 days ago that has now resolved. TRAVEL OUTSIDE OF THE [place] IN LAST 30 DAYS: No - HPI Patient complains to provider of: Shortness of breath, Other - Back pain and shoulder pain. denies: Chest pain, Chest tightness, Palpitations Use of: denies: Alcohol, Amphetamines, Bath salts, Caffeine, Cocaine, Decongestants, Other Was the onset of pain: Sudden When did pain begin: Earlier this afternoon Is the pain a: New problem Chest pain location: Back, Other - Under scapula Quality of pain: Moderate, Sharp, Stabbing. denies: Heaviness, Pressure, Tearing Chest pain radiation location: Left shoulder. denies: Left jaw, Left arm, Right jaw, Right arm, Right shoulder, Back, Neck, None Severity now: Mild Severity at worst: Moderate Pain level currently: 2 Chest pain precipitating factors: None Cardiac risk factors: Hypertension. denies: Diabetes Positive cardiac history: Yes Associated symptoms: None Exacerbated by: Denies Relieved by: Nothing Similar symptoms previously: No Recently seen / treated by doctor: No - Related Data Allergies/Adverse Reactions: acetaminophen [From Percocet] Allergy (Verified 04/02/17 12:02) ITCHING codeine [Codeine] Allergy (Verified 04/02/17 12:02) Nausea hydrocodone bitartrate [From Vicodin] Allergy (Verified 04/02/17 12:02) ITCHING levofloxacin [From Levaquin] Allergy (Verified 04/02/17 12:02) ITCHING oxycodone HCl [From Percocet] Allergy (Verified 04/02/17 12:02) ITCHING Sulfa (Sulfonamide Antibiotics) Allergy (Verified 04/02/17 12:02) ITCHING sulfabenzamide [Sulfabenzamide] Allergy (Verified 04/02/17 12:02) ITCHING Past Medical History - General Information source: Patient, Relative - Social History Smoking Status: Unknown if Ever Smoked Cigarette use (# per day): No Chew tobacco use (# tins/day): No Smoking Education Provided: No Frequency of alcohol use: None Drug Abuse: None Lives with: Alone Family History: Reviewed & Not Pertinent Patient has suicidal ideation: No Patient has homicidal ideation: No - Medical History Medical History: Other - HTN, Atrial fibrillation, PE - Past Medical History Cardiac Medical History: Reports: Hx DVT, Hx Hypercholesterolemia - borderline, Hx Hypertension - borderline, Hx Pulmonary Embolism Denies: Hx Heart Attack Pulmonary Medical History: Reports: Hx Pneumonia Denies: Hx Asthma EENT Medical History: Reports: None Neurological Medical History: Denies: Hx Cerebrovascular Accident, Hx Seizures Endocrine Medical History: Reports: None Renal/ Medical History: Reports: None. Denies: Hx Peritoneal Dialysis Malignancy Medical History: Reports: None GI Medical History: Reports: Hx Gastroesophageal Reflux Disease, Hx Hiatal Hernia. Denies: Hx Hepatitis, Hx Ulcer Musculoskeletal Medical History: Reports Hx Arthritis Skin Medical History: Reports None Psychiatric Medical History: Reports: None Traumatic Medical History: Reports: None Infectious Medical History: Denies: Hx Hepatitis Past Surgical History: Reports: Hx Hysterectomy, Hx Orthopedic Surgery - bilat rotator cuff, thumb joint removed, finger surgeries. Denies: Hx Mastectomy, Hx Open Heart Surgery, Hx Pacemaker - Immunizations Hx Diphtheria, Pertussis, Tetanus Vaccination: Yes Review of Systems - Review of Systems Constitutional: No symptoms reported EENT: No symptoms reported Cardiovascular: No symptoms reported Respiratory: Short of breath Gastrointestinal: No symptoms reported Genitourinary: No symptoms reported Female Genitourinary: No symptoms reported Musculoskeletal: Back pain, Leg swelling Skin: No symptoms reported Hematologic/Lymphatic: No symptoms reported Neurological/Psychological: No symptoms reported -: Yes All other systems reviewed and negative Physical Exam - Vital signs Vitals: Temp Pulse Resp BP Pulse Ox 97.8 F 62 12 170/75 H 99 06/25/18 18:02 06/25/18 18:02 06/25/18 18:02 06/25/18 18:02 06/25/18 18:02 - General General appearance: Appears well In distress: None - HEENT Head: Normocephalic, Atraumatic Eyes: Normal Pupils: PERRL - Respiratory Respiratory status: No respiratory distress. No: Labored Chest status: Nontender Breath sounds: Normal Chest palpation: Normal - Cardiovascular Rhythm: Regular Heart sounds: Normal auscultation Murmur: No Pulses: Normal: Radial, Carotid, Femoral Normal capillary refill: Yes - Abdominal Inspection: Normal Distension: No distension Bowel sounds: Normal Tenderness: Nontender Organomegaly: No organomegaly - Back Back: Normal, Tender - Inferior to the left scapula - Extremities General upper extremity: Normal inspection, Nontender, Normal color, Normal ROM , Normal temperature General lower extremity: Normal inspection, Nontender, Edema, Normal color, Normal ROM, Normal temperature, Normal weight bearing. No: Carina's sign - Neurological Neuro grossly intact: Yes Cognition: Normal Orientation: AAOx4 Salty Coma Scale Eye Opening: Spontaneous [place] Coma Scale Verbal: Oriented [place] Coma Scale Motor: Obeys Commands [place] Coma Scale Total: 15 Speech: Normal Motor strength normal: LUE, RUE, LLE, RLE Sensory: Normal - Psychological Associated symptoms: Normal affect, Normal mood - Skin Skin Temperature: Warm Skin Moisture: Dry Skin Color: Normal Course - Re-evaluation Re-evalutation: 06/26/18 02:24 Blood work, including cardiac enzymes, is negative. Chest x-ray reveals no evidence of acute intra-abdominal perforation. CT angiogram of the chest reveals no evidence of acute pulmonary embolism. Patient will be discharged home. - Vital Signs Vital signs: Temp Pulse Resp BP Pulse Ox 97.8 F 62 16 153/72 H 94 06/25/18 18:02 06/25/18 18:02 06/26/18 02:01 06/26/18 02:01 06/26/18 02:01 - Laboratory Result Diagrams: 06/25/18 23:11 06/25/18 23:11 Laboratory results interpreted by me: 06/25/18 06/25/18 23:11 23:11 RDW 14.4 H BUN 21 H - Diagnostic Test Radiology reviewed: Reports reviewed - EKG Interpretation by Me EKG shows normal: Sinus rhythm Rate: Normal Rhythm: NSR [place]/QRS: No: LBBB Heart block present: No: 1st Degree, Mobitz 1, Mobitz 2, CHB (3rd degree block) When compared to previous EKG there are: No significant change Discharge - Discharge Clinical Impression: Back pain Condition: Good Disposition: HOME, SELF-CARE Instructions: Muscle Strain ([facility]) Additional Instructions: Please follow-up with your primary physician as scheduled. Referrals: BROCK WILL MD [Primary Care Provider] - Follow up as needed Print Language: Portuguese
[2018-06-25 23:21] LABS: ABSOLUTE EOSINOPHILS # (AUTO) 0.3 10^3/uL (0.0-0.6); ABSOLUTE MONOCYTES (AUTO) 0.5 10^3/uL (0.1-1.4); ABSOLUTE NEUT (AUTO) 4.3 10^3/uL (1.7-8.2); BASOPHILS % (AUTO) 0.6 % (0-2); EOSINOPHILS % (AUTO) 3.6 % (0-6); HEMATOCRIT 38.9 % (36.0-47.0); HEMOGLOBIN 13.2 g/dL (12.0-15.5); LYMPHOCYTES % (AUTO) 27.8 % (13-45); MEAN CORPUSCULAR HEMOGLOBIN 29.9 pg (27.0-33.4); MEAN CORPUSCULAR HGB CONC 33.8 g/dL (32.0-36.0); MEAN CORPUSCULAR VOLUME 88 fl (80-97); MONOCYTES % (AUTO) 6.8 % (3-13); PLATELET COUNT 263 10^3/uL (150-450); RED CELL DISTRIBUTION WIDTH 14.4 % (11.5-14.0); SEGMENTED NEUTROPHILS % (AUTO) 61.2 % (42-78); TOTAL CELLS COUNTED % (AUTO) 100 %
--- NOTE | 2018-06-25 23:22 | RADIOLOGY REPORT (SQ) ---
EXAM DESCRIPTION: XR CHEST 1 VIEW COMPLETED DATE/TME: 06/25/2018 22:21 CLINICAL HISTORY: 78 years, Female, Chest pain Findings: Heart is mildly enlarged. No consolidation or pleural effusion. No pulmonary edema or pneumothorax. Mild left basilar atelectatic changes. IMPRESSION: No acute disease.
[2018-06-25 23:27] LABS: INTERNATIONAL RATION (INR) 1.12
[2018-06-25 23:28] LABS: PARTIAL THROMBOPLASTIN TIME 30.4 SEC (23.5-35.8)
[2018-06-25 23:45] LABS: ALANINE AMINOTRANSFERASE 38 U/L (9-52); ALKALINE PHOSPHATASE 105 U/L (38-126); ANION GAP 12 (5-19); ASPARTATE AMINO TRANSFERASE 28 U/L (14-36); BILIRUBIN,DIRECT 0.1 mg/dL (0.0-0.4); BILIRUBIN,TOTAL 0.5 mg/dL (0.2-1.3); BLOOD UREA NITROGEN 21 mg/dL (7-20); CALCIUM 9.3 mg/dL (8.4-10.2); CARBON DIOXIDE 27 mmol/L (22-30); CHLORIDE 105 mmol/L (98-107); CREATINE KINASE 38 U/L (30-135); GLUCOSE 106 mg/dL (75-110); POTASSIUM 4.1 mmol/L (3.6-5.0); SODIUM 144.3 mmol/L (137-145); TOTAL PROTEIN 6.6 g/dL (6.3-8.2)
[2018-06-25 23:57] LABS: NT PRO BNP 196 pg/mL (<450)
[2018-06-26 00:01] LABS: CREATINE KINASE MB 0.87 ng/mL (<4.55); TROPONIN I < 0.012 ng/mL
--- NOTE | 2018-06-26 00:43 | RADIOLOGY REPORT (SQ) ---
EXAM DESCRIPTION: CT CHEST ANGIOGRAPHY WITHOUT THEN WITH IV CONTRAST, three-dimensional reconstructions COMPLETED DATE/TME: 06/25/2018 22:21 CLINICAL HISTORY: 78 years, Female, Chest pain This exam was performed according to our departmental dose-optimization program which includes automated exposure control, adjustment of the mA and/or kVp according to patient size and/or use of iterative reconstruction technique where applicable. FINDINGS: Pulmonary arteries are well opacified. No significant filling defects in the pulmonary arterial tree to suggest acute pulmonary embolism. Aorta is mildly calcified without aneurysm. No significant mediastinal, hilar or axillary lymphadenopathy. No pleural or pericardial effusions. The visualized upper abdominal organs are within normal limits. Evaluation of the lung parenchyma demonstrates trachea and major airways to be patent. No suspicious lung nodules or masses. No consolidations to suggest pneumonia. IMPRESSION: No acute pulmonary embolism. No acute pathology.
[2018-06-26 02:03] VITALS: BP 153/72
--- NOTE | 2018-06-26 11:19 | EKG REPORT ---
SEVERITY:- BORDERLINE ECG - SINUS RHYTHM BORDERLINE LEFT AXIS DEVIATION CONSIDER ANTERIOR INFARCT : Confirmed by: Fortunato Kinsey 26-Jun-2018 11:18:48
== END 2018-06-26 03:07 | disposition home or self-care (01) ==
LOC: ER 17:52
DX: M54.9 Dorsalgia, unspecified (principal); R06.02 Shortness of breath; M25.512 Pain in left shoulder; I48.91 Unspecified atrial fibrillation; I26.99 Other pulmonary embolism without acute cor pulmonale; I10 Essential (primary) hypertension; Z79.01 Long term (current) use of anticoagulants; Z88.2 Allergy status to sulfonamides; E78.00 Pure hypercholesterolemia, unspecified; M79.89 Other specified soft tissue disorders; Z86.718 Personal history of other venous thrombosis and embolism; Z87.01 Personal history of pneumonia (recurrent); K21.9 Gastro-esophageal reflux disease without esophagitis; Z90.79 Acquired absence of other genital organ(s); R60.0 Localized edema
CPT/HCPCS: 93005; 99284; 36415; 82553; 82550; 83735; 85025; 85610; 85730; 80053; 84484; 83880; 71045; 71275; 93010; A9270

== ENCOUNTER → 2018-08-02 | Outpatient (CLI) | payer MEDICARE, OTHER | LOC: OD 16:18 | PROVIDERS: ATTEND Orthopaedic Surgery | DX: M54.5 Low back pain (principal) | CPT/HCPCS: 36415; 82565; 84520 ==

== ENCOUNTER 2018-11-20 15:13 | Emergency (ER) | payer MEDICARE, OTHER ==
[2018-11-20 15:20] VITALS: BP 166/76
--- NOTE | 2018-11-20 17:05 | ER Document Report ---
Addendum entered and electronically signed by EVERTON HAYS PA-C 11/20/18 17:48: Course - Re-evaluation Re-evalutation: 11/20/18 17:47 Venous doppler unofficially negative. - Vital Signs Vital signs: Temp Pulse Resp BP Pulse Ox 98.3 F 91 18 166/76 H 98 11/20/18 15:19 11/20/18 15:19 11/20/18 15:19 11/20/18 15:19 11/20/18 15:19 Original Note: ED Medical Screen (RME) - General Chief Complaint: Groin Pain Stated Complaint: RIGHT LEG PAIN Time Seen by Provider: 11/20/18 16:53 Primary Care Provider: SHILO BIGGS MD [Primary Care Provider] - Follow up as needed TRAVEL OUTSIDE OF THE [place] IN LAST 30 DAYS: No - HPI Notes: 11/20/18 17:01 Patient is an 78-year-old female with a history of DVT, PE (on Eliquis), hypertension who presents the emergency department complaining of right inguinal/proximal leg pain that occurred suddenly today. Patient states that the pain is sharp and occurred when she was walking. She has not noticed any bulging or bruising in the area. Patient states that she had similar pain in presentation when she had a blood clot previously. She otherwise is eating and drinking without ability. She is urinating normally and having normal bowel movements. Denies any headache, fever, neck pain, URI, sore throat, chest pain, palpitations, syncope, cough, shortness of breath, wheeze, dyspnea, abdominal pain, nausea/vomiting/diarrhea, urinary retention, dysuria, hematuria, loss of control of bowel or bladder, numbness/tingling, saddle anesthesia, muscle paralysis, or rash. I have treated and performed a rapid initial assessment of this patient. A comprehensive ED assessment and evaluation of the patient, analysis of test results and completion of medical decision making process will be conducted by additional ED providers. PHYSICAL EXAMINATION: GENERAL: Well-appearing, well-nourished and in no acute distress. A&Ox4. Answers questions appropriately. LUNGS: Breath sounds clear to auscultation bilaterally and equal. No wheezes rales or rhonchi. HEART: Regular rate and rhythm without murmurs, rubs, gallops. ABDOMEN: Soft, nondistended abdomen. No guarding, no rebound. Normal bowel sounds present. No CVA tenderness bilaterally. + tenderness in the inguinal area (cannot elicit thorough abd exam w/o table, however). No obvious bulge, but difficult to assess without pt being in gown, etc. Extremities: 1+ pitting edema b/l LE's. 1-2+ pulses b/l. No calf tenderness. + tenderness rt anteroproximal thigh/inguinal area. NEUROLOGICAL: Normal speech, normal gait. PSYCH: Normal mood, normal affect. - Related Data Allergies/Adverse Reactions: acetaminophen [From Percocet] Allergy (Verified 04/02/17 12:02) ITCHING codeine [Codeine] Allergy (Verified 04/02/17 12:02) Nausea hydrocodone bitartrate [From Vicodin] Allergy (Verified 04/02/17 12:02) ITCHING levofloxacin [From Levaquin] Allergy (Verified 04/02/17 12:02) ITCHING oxycodone HCl [From Percocet] Allergy (Verified 04/02/17 12:02) ITCHING Sulfa (Sulfonamide Antibiotics) Allergy (Verified 04/02/17 12:02) ITCHING sulfabenzamide [Sulfabenzamide] Allergy (Verified 04/02/17 12:02) ITCHING Past Medical History - Past Medical History Cardiac Medical History: Reports: Hx DVT, Hx Hypercholesterolemia - borderline, Hx Hypertension - borderline, Hx Pulmonary Embolism Denies: Hx Heart Attack Pulmonary Medical History: Reports: Hx Pneumonia Denies: Hx Asthma Neurological Medical History: Denies: Hx Cerebrovascular Accident, Hx Seizures Renal/ Medical History: Denies: Hx Peritoneal Dialysis GI Medical History: Reports: Hx Gastroesophageal Reflux Disease, Hx Hiatal Hernia. Denies: Hx Hepatitis, Hx Ulcer Musculoskeltal Medical History: Reports Hx Arthritis Infectious Medical History: Denies: Hx Hepatitis Past Surgical History: Reports: Hx Hysterectomy, Hx Orthopedic Surgery - bilat rotator cuff, thumb joint removed, finger surgeries. Denies: Hx Mastectomy, Hx Open Heart Surgery, Hx Pacemaker - Immunizations Hx Diphtheria, Pertussis, Tetanus Vaccination: Yes Physical Exam - Vital signs Vitals: Temp Pulse Resp BP Pulse Ox 98.3 F 91 18 166/76 H 98 11/20/18 15:19 11/20/18 15:19 11/20/18 15:19 11/20/18 15:19 11/20/18 15:19 Course - Vital Signs Vital signs: Temp Pulse Resp BP Pulse Ox 98.3 F 91 18 166/76 H 98 11/20/18 15:19 11/20/18 15:19 11/20/18 15:19 11/20/18 15:19 11/20/18 15:19 Doctor's Discharge - Discharge Referrals: SHILO BIGGS MD [Primary Care Provider] - Follow up as needed
[2018-11-20 18:44] LABS: ABSOLUTE EOSINOPHILS # (AUTO) 0.1 10^3/uL (0.0-0.6); ABSOLUTE LYMPHOCYTES (AUTO) 1.2 10^3/uL (0.5-4.7); ABSOLUTE MONOCYTES (AUTO) 0.4 10^3/uL (0.1-1.4); ABSOLUTE NEUT (AUTO) 3.7 10^3/uL (1.7-8.2); BASOPHILS % (AUTO) 0.7 % (0-2); EOSINOPHILS % (AUTO) 2.3 % (0-6); HEMATOCRIT 33.8 % (36.0-47.0); HEMOGLOBIN 11.4 g/dL (12.0-15.5); LYMPHOCYTES % (AUTO) 22.5 % (13-45); MEAN CORPUSCULAR HEMOGLOBIN 29.8 pg (27.0-33.4); MEAN CORPUSCULAR HGB CONC 33.6 g/dL (32.0-36.0); MEAN CORPUSCULAR VOLUME 89 fl (80-97); MONOCYTES % (AUTO) 6.8 % (3-13); PLATELET COUNT 273 10^3/uL (150-450); RED BLOOD COUNT 3.82 10^6/uL (3.72-5.28); RED CELL DISTRIBUTION WIDTH 13.6 % (11.5-14.0); SEGMENTED NEUTROPHILS % (AUTO) 67.7 % (42-78); TOTAL CELLS COUNTED % (AUTO) 100 %; WHITE BLOOD COUNT 5.4 10^3/uL (4.0-10.5)
[2018-11-20 18:46] LABS: APPEARANCE,URINE SLIGHTLY-CLOUDY; BILIRUBIN,URINE NEGATIVE (NEGATIVE); COLOR,URINE YELLOW; GLUCOSE, URINE NEGATIVE (NEGATIVE); KETONES,URINE NEGATIVE (NEGATIVE); LEUKOCYTE ESTERASE,URINE SMALL (NEGATIVE); NITRITE,URINE NEGATIVE (NEGATIVE); PROTEIN,URINE NEGATIVE (NEGATIVE); URINE SPECIFIC GRAVITY 1.011; UROBILINOGEN,URINE NEGATIVE mg/dL (<2.0)
[2018-11-20 19:01] LABS: ALANINE AMINOTRANSFERASE 25 U/L (9-52); ALKALINE PHOSPHATASE 111 U/L (38-126); ANION GAP 8 (5-19); ASPARTATE AMINO TRANSFERASE 22 U/L (14-36); BILIRUBIN,DIRECT 0.2 mg/dL (0.0-0.4); BILIRUBIN,TOTAL 0.4 mg/dL (0.2-1.3); BLOOD UREA NITROGEN 21 mg/dL (7-20); CALCIUM 9.5 mg/dL (8.4-10.2); CARBON DIOXIDE 27 mmol/L (22-30); CHLORIDE 107 mmol/L (98-107); GLUCOSE 88 mg/dL (75-110); POTASSIUM 4.4 mmol/L (3.6-5.0); TOTAL PROTEIN 6.6 g/dL (6.3-8.2)
--- NOTE | 2018-11-20 20:11 | RADIOLOGY REPORT (SQ) ---
EXAM DESCRIPTION: VENOUS UNILATERAL LOWER COMPLETED DATE/TIME: 11/20/2018 7:32 pm REASON FOR STUDY: rt leg pain COMPARISON: 04/02/2017 TECHNIQUE: Dynamic and static ruano scale and color images acquired of the right leg venous system. S elected spectral images acquired with additional compression and augmentation maneuvers. The contrala teral common femoral vein and saphenofemoral junction were also imaged. Images stored on PACS. LIMITATIONS: None. FINDINGS: COMMON FEMORAL: Normal phasicity, compression and augmentation. No visualized echogenic ma terial on ruano scale. No defects on color images. FEMORAL: Normal compression and augmentation. No visualized echogenic material on ruano scale. No defe cts on color images. POPLITEAL: Normal compression, augmentation. No visualized echogenic material on ruano scale. No defec ts on color images. CALF VESSELS: Normal compression, augmentation. No visualized echogenic material on ruano scale. No de fects on color images. GSV and SSV: Normal compression, augmentation. No visualized echogenic material on ruano scale. No def ects on color images. ANY DEEP VENOUS INSUFFICIENCY: Not evaluated. ANY EVIDENCE OF POPLITEAL CYST: No. OTHER: No other significant finding. CONTRALATERAL COMMON FEMORAL VEIN AND SAPHENOFEMORAL JUNCTION: Normal phasicity, compression and augmentation. No visualized echogenic material on ruano scale. No de fects on color images. IMPRESSION: NO EVIDENCE DVT OR SVT IN THE RIGHT LEG. TECHNICAL DOCUMENTATION: JOB ID: [id number] [employer]- All Rights Reserved Reading location - IP/workstation name: [email or web address]
--- NOTE | 2018-11-20 20:42 | ER Document Report ---
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 Patient states that the pain is sharp and occurred when she was walking. She has not noticed any bulging or bruising in the area. Patient states that she had similar pain in presentation when she had a blood clot previously. She otherwise is eating and drinking without ability. She is urinating normally and having normal bowel movements. Denies any headache, fever, neck pain, URI, sore throat, chest pain, palpitations, syncope, cough, shortness of breath, wheeze, dyspnea, abdominal pain, nausea/vomiting/diarrhea, urinary retention, dysuria, hematuria, loss of control of bowel or bladder, numbness/tingling, saddle anesthesia, muscle paralysis, or rash. TRAVEL OUTSIDE OF THE [place] IN LAST 30 DAYS: No - Related Data Allergies/Adverse Reactions: acetaminophen [From Percocet] Allergy (Verified 04/02/17 12:02) ITCHING codeine [Codeine] Allergy (Verified 04/02/17 12:02) Nausea hydrocodone bitartrate [From Vicodin] Allergy (Verified 04/02/17 12:02) ITCHING levofloxacin [From Levaquin] Allergy (Verified 04/02/17 12:02) ITCHING oxycodone HCl [From Percocet] Allergy (Verified 04/02/17 12:02) ITCHING Sulfa (Sulfonamide Antibiotics) Allergy (Verified 04/02/17 12:02) ITCHING sulfabenzamide [Sulfabenzamide] Allergy (Verified 04/02/17 12:02) ITCHING Past Medical History - General Information source: Patient - Social History Smoking Status: Former Smoker Frequency of alcohol use: None Drug Abuse: None Family History: Reviewed & Not Pertinent Patient has suicidal ideation: No Patient has homicidal ideation: No - Past Medical History Cardiac Medical History: Reports: Hx DVT, Hx Hypercholesterolemia - borderline, Hx Hypertension - borderline, Hx Pulmonary Embolism Denies: Hx Heart Attack Pulmonary Medical History: Reports: Hx Pneumonia Denies: Hx Asthma Neurological Medical History: Denies: Hx Cerebrovascular Accident, Hx Seizures Renal/ Medical History: Denies: Hx Peritoneal Dialysis GI Medical History: Reports: Hx Gastroesophageal Reflux Disease, Hx Hiatal Hernia. Denies: Hx Hepatitis, Hx Ulcer Musculoskeletal Medical History: Reports Hx Arthritis Infectious Medical History: Denies: Hx Hepatitis Past Surgical History: Reports: Hx Hysterectomy, Hx Orthopedic Surgery - bilat rotator cuff, thumb joint removed, finger surgeries. Denies: Hx Mastectomy, Hx Open Heart Surgery, Hx Pacemaker - Immunizations Hx Diphtheria, Pertussis, Tetanus Vaccination: Yes Review of Systems - Review of Systems Constitutional: No symptoms reported EENT: No symptoms reported Cardiovascular: No symptoms reported Respiratory: No symptoms reported Gastrointestinal: No symptoms reported Genitourinary: No symptoms reported Female Genitourinary: No symptoms reported Musculoskeletal: See HPI Skin: No symptoms reported Hematologic/Lymphatic: No symptoms reported Neurological/Psychological: No symptoms reported Physical Exam - Vital signs Vitals: Temp Pulse Resp BP Pulse Ox 98.3 F 91 18 166/76 H 98 11/20/18 15:19 11/20/18 15:19 11/20/18 15:19 11/20/18 15:19 11/20/18 15:19 - Notes Notes: PHYSICAL EXAMINATION: GENERAL: Well-appearing, well-nourished and in no acute distress. HEAD: Atraumatic, normocephalic. EYES: Pupils equal round and reactive to light, extraocular movements intact, conjunctiva are normal. ENT: Nares patent, oropharynx clear without exudates. Moist mucous membranes. NECK: Normal range of motion, supple without lymphadenopathy LUNGS: Breath sounds clear to auscultation bilaterally and equal. No wheezes rales or rhonchi. HEART: Regular rate and rhythm without murmurs ABDOMEN: Soft, nontender, nondistended abdomen. No guarding, no rebound. No masses appreciated. Female : deferred Musculoskeletal: Normal range of motion, no pitting or edema. No cyanosis. No unilateral lower extremity swelling noted. NEUROLOGICAL: Cranial nerves grossly intact. Normal speech. Normal sensory, motor exams PSYCH: Normal mood, normal affect. SKIN: Warm, Dry, normal turgor, no rashes or lesions noted. Course - Re-evaluation Re-evalutation: CBC, CMP and urinalysis are unremarkable. Venous Doppler ultrasound is negative for any DVT or SVT. This was discussed with the patient and family. Encourage patient to follow-up with her primary care provider. Patient may need to have an additional Doppler done in approximately 10 days if her symptoms persist, return sooner if her symptoms worsen. Patient and family both verbalized understanding and agreement with plan. - Vital Signs Vital signs: Temp Pulse Resp BP Pulse Ox 98.3 F 91 18 166/76 H 98 11/20/18 15:19 11/20/18 15:19 11/20/18 15:19 11/20/18 15:19 11/20/18 15:19 - Laboratory Result Diagrams: 11/20/18 18:14 11/20/18 18:14 Laboratory results interpreted by me: 11/20/18 11/20/18 11/20/18 18:14 18:14 18:14 Hgb 11.4 L Hct 33.8 L BUN 21 H Est GFR ( Amer) 58 L Est GFR (Non-Af Amer) 48 L Ur Leukocyte Esterase SMALL H Discharge - Discharge Clinical Impression: Right leg pain, Concern for DVT Condition: Stable Disposition: HOME, SELF-CARE Additional Instructions: As discussed your lab work-up was unremarkable today. The venous Doppler ultrasound showed no deep vein thrombosis or superficial vein thrombosis of the right leg. I recommend you call Dr. Will and let him know you were seen here and we did not ultrasound that did not show any blood clot. If you contin ue to have symptoms you may need a repeat venous Doppler ultrasound in 10 days. Return to the emergency department sooner with any new or worsening symptoms to include development of chest pain or shortness of breath. Please continue to take all home medications as prescribed. Referrals: BROCK WILL MD [ACTIVE STAFF] - Follow up as needed
== END 2018-11-20 21:11 | disposition home or self-care (01) ==
LOC: ER 15:13
DX: M79.604 Pain in right leg (principal); Z86.711 Personal history of pulmonary embolism; Z86.718 Personal history of other venous thrombosis and embolism; Z79.01 Long term (current) use of anticoagulants; Z88.6 Allergy status to analgesic agent; Z88.5 Allergy status to narcotic agent; Z88.1 Allergy status to other antibiotic agents; Z88.2 Allergy status to sulfonamides
CPT/HCPCS: 36415; 80053; 81001; 85025; 93971; 99284